=== PATIENT | male | born 1935 | race Caucasian/White ===

== ENCOUNTER 2017-08-20 14:07 | Inpatient (IN) | payer OTHER ==
[~2017-08-20] VITALS: Ht 190.5 cm; Wt 88.5 kg
[2017-08-20 15:00] LABS: CALCIUM 8.6 mg/dL (8.5-10.1); CARBON DIOXIDE 29.6 mmol/L (21-32); CHLORIDE SERUM 99 mmol/L (98-107); CREATININE SERUM 1.5 mg/dL (0.7-1.3); GLUCOSE SERUM 109 mg/dL (74-106); POTASSIUM SERUM 4.4 mmol/L (3.5-5.1); SODIUM SERUM 135 mmol/L (136-145)
[2017-08-20 15:01] LABS: BASOPHIL % 0.8 % (0-2); PLATELET COUNT 234 x10^3mcL (130-400)
[2017-08-20 15:02] LABS: RED CELL DISTRIBUTION WIDTH 18.8 % (11.5-14.5)
[2017-08-20] MEDS ORDERED: CLOPIDOGREL75 M1 PO (15:09)
[2017-08-20] MEDS ORDERED: ZETIA10 M1 PO (15:09)
[2017-08-20] MEDS ORDERED: BAYER ASPIRIN R81 MG PO (15:09)
[2017-08-20] MEDS ORDERED: GOOD SENSE OMEP20 MG PO (15:10)
[2017-08-20] MEDS ORDERED: LASIX40 MG PO (15:10)
[2017-08-20] MEDS ORDERED: PRADAXA150 M1 PO (15:11)
[2017-08-20] MEDS ORDERED: LOSARTAN POTASS1 TAB PO (15:11)
[2017-08-20 15:12] LABS: ALKALINE PHOSPHATASE 71 U/L (46-116); ALT/SGPT 37 U/L (16-63); AST/SGOT 28 U/L (15-37); BILIRUBIN TOTAL 0.6 mg/dL (0.20-1.00); TOTAL PROTEIN, SERUM 7.4 g/dL (6.4-8.2)
[2017-08-20] MEDS ORDERED: OSTEO BI-FLEX1 EAC2 PO (15:12)
[2017-08-20] MEDS ORDERED: RANEXA1000 M2 PO (15:12)
[2017-08-20] MEDS ORDERED: ZOLOFT50 MG PO (15:13)
[2017-08-20] MEDS ORDERED: AMIODARONE HCL200 MG PO (15:13)
[2017-08-20] MEDS ORDERED: FLO4 PO (15:13)
[2017-08-20] MEDS ORDERED: PRA40 PO (15:14)
[2017-08-20] MEDS ORDERED: TOPROL XL25 MG PO (15:14)
[2017-08-20] MEDS ORDERED: RESTORIL30 MG PO (15:15)
[2017-08-20 16:32] LABS: MAGNESIUM 2.3 mg/dL (1.8-2.4); PHOSPHOROUS 3.7 mg/dL (2.5-4.9)
[2017-08-20 16:34] LABS: CHOLESTEROL/HDL RATIO 3.2
[2017-08-20 17:25] VITALS: BP 144/61
[2017-08-20 18:09] VITALS: BP 148/63
[2017-08-20 18:11] LABS: microscopic required? NO
[2017-08-20 18:18] LABS: urine erythrocyte NEGATIVE (NEGATIVE)
[2017-08-20 18:26] LABS: AMPHETAMINE QUAL UR NONE DETECTED (NEG <=1000)
[2017-08-20 21:02] VITALS: BP 127/64
[2017-08-21] VITALS (11 sets, daily range): BP systolic 80–125; BP diastolic 26–58
[2017-08-21 09:33] LABS: BASOPHIL % 0.2 % (0-2); PLATELET COUNT 206 x10^3mcL (130-400)
[2017-08-21 09:34] LABS: RED CELL DISTRIBUTION WIDTH 18.8 % (11.5-14.5)
[2017-08-21 09:44] LABS: CALCIUM 7.9 mg/dL (8.5-10.1); CARBON DIOXIDE 29.9 mmol/L (21-32); CHLORIDE SERUM 104 mmol/L (98-107); CREATININE SERUM 1.6 mg/dL (0.7-1.3); GLUCOSE SERUM 125 mg/dL (74-106); MAGNESIUM 2.1 mg/dL (1.8-2.4); PHOSPHOROUS 3.9 mg/dL (2.5-4.9); POTASSIUM SERUM 3.8 mmol/L (3.5-5.1); SODIUM SERUM 140 mmol/L (136-145)
[2017-08-22 05:28] VITALS: BP 125/53
[2017-08-22 06:19] LABS: CALCIUM 8.3 mg/dL (8.5-10.1); CARBON DIOXIDE 28.9 mmol/L (21-32); CHLORIDE SERUM 103 mmol/L (98-107); CREATININE SERUM 1.5 mg/dL (0.7-1.3); GLUCOSE SERUM 96 mg/dL (74-106); SODIUM SERUM 139 mmol/L (136-145)
[2017-08-22 06:53] LABS: BASOPHIL % 0.5 % (0-2); PLATELET COUNT 186 x10^3mcL (130-400)
[2017-08-22 07:01] LABS: RED CELL DISTRIBUTION WIDTH 18.5 % (11.5-14.5)
[2017-08-22 08:16] LABS: rbc morphology (normal/abnorm) ABNORMAL (NORMAL)
[2017-08-22 09:50] VITALS: BP 106/50
[2017-08-22 13:40] VITALS: BP 120/51
[2017-08-22 17:40] VITALS: BP 118/69
[2017-08-22 21:57] LABS: BASOPHIL % 0.5 % (0-2); PLATELET COUNT 175 x10^3mcL (130-400)
[2017-08-22 22:04] LABS: RED CELL DISTRIBUTION WIDTH 18.5 % (11.5-14.5)
[2017-08-22 22:53] VITALS: BP 130/54
[2017-08-23 05:43] VITALS: BP 136/78
[2017-08-23 06:41] LABS: BASOPHIL % 0.6 % (0-2); PLATELET COUNT 166 x10^3mcL (130-400)
[2017-08-23 06:42] LABS: RED CELL DISTRIBUTION WIDTH 18.1 % (11.5-14.5)
[2017-08-23 06:49] LABS: CARBON DIOXIDE 28.2 mmol/L (21-32); CHLORIDE SERUM 99 mmol/L (98-107); CREATININE SERUM 1.5 mg/dL (0.7-1.3); GLUCOSE SERUM 96 mg/dL (74-106); POTASSIUM SERUM 3.9 mmol/L (3.5-5.1); SODIUM SERUM 133 mmol/L (136-145)
[2017-08-23 09:45] VITALS: BP 118/42
[2017-08-23 13:17] VITALS: BP 129/64
[2017-08-23 16:35] VITALS: BP 129/59
[2017-08-23 16:59] VITALS: BP 129/59
== END 2017-08-23 18:35 | DRG 377 ==
LOC: ED 14:07 → DU 15:12
PROVIDERS: Emergency Medicine; Internal Medicine; ADMIT Family Medicine Sports Medicine
PROC: 0W3P8ZZ Control Bleeding in Gastrointestinal Tract, Via Natural or Artificial Opening Endoscopic (ICD-10-PCS; principal; 2017-08-21 08:00)
PROC: 0DJD8ZZ Inspection of Lower Intestinal Tract, Via Natural or Artificial Opening Endoscopic (ICD-10-PCS; 2017-08-21 08:00)
DX: K29.61 Other gastritis with bleeding (principal); N17.0 Acute kidney failure with tubular necrosis; I50.43 Acute on chronic combined systolic (congestive) and diastolic (congestive) heart failure; E44.0 Moderate protein-calorie malnutrition; E87.1 Hypo-osmolality and hyponatremia; D68.69 Other thrombophilia; E87.3 Alkalosis; I11.0 Hypertensive heart disease with heart failure; I20.9 Angina pectoris, unspecified; K20.8 Other esophagitis; K44.9 Diaphragmatic hernia without obstruction or gangrene; K57.30 Diverticulosis of large intestine without perforation or abscess without bleeding; E11.9 Type 2 diabetes mellitus without complications; F41.8 Other specified anxiety disorders; N40.0 Benign prostatic hyperplasia without lower urinary tract symptoms; K21.9 Gastro-esophageal reflux disease without esophagitis; E78.5 Hyperlipidemia, unspecified; Z68.25 Body mass index [BMI] 25.0-25.9, adult; Z95.0 Presence of cardiac pacemaker; Z95.2 Presence of prosthetic heart valve; Z95.1 Presence of aortocoronary bypass graft; Z95.5 Presence of coronary angioplasty implant and graft; Z86.73 Personal history of transient ischemic attack (TIA), and cerebral infarction without residual deficits; Z79.84 Long term (current) use of oral hypoglycemic drugs; Z79.82 Long term (current) use of aspirin
CPT/HCPCS: 43235; 45378; 82962; 83880; 97110-GP; 97116-GP; 97530-GP; J1200; J1610; J1940; J2250; J2310; J2405; J3010; J3490; J7030; J7040; P9016; Q0092; Q0163

== ENCOUNTER 2017-09-06 11:02 | Observation (INO) | payer OTHER ==
[~2017-09-06] VITALS: Ht 190.5 cm; Wt 89.0 kg
[~2017-09-06 11:02] MED LIST: AMIODARONE HCL200 MG PO; BAYER ASPIRIN R81 MG PO; CLOPIDOGREL75 M1 PO; FLO4 PO; GOOD SENSE OMEP20 MG PO; LASIX40 MG PO; LOSARTAN POTASS1 TAB PO; OSTEO BI-FLEX1 EAC2 PO; PRA40 PO; PRADAXA150 M1 PO; RANEXA1000 M2 PO; RESTORIL30 MG PO; TOPROL XL25 MG PO; ZETIA10 M1 PO; ZOLOFT50 MG PO
[2017-09-06 11:58] LABS: BASOPHIL % 0.2 % (0-2); PLATELET COUNT 202 x10^3mcL (130-400)
[2017-09-06 12:01] LABS: RED CELL DISTRIBUTION WIDTH 20.4 % (11.5-14.5)
[2017-09-06 12:14] LABS: CALCIUM 8.5 mg/dL (8.5-10.1); CARBON DIOXIDE 29.5 mmol/L (21-32); CHLORIDE SERUM 101 mmol/L (98-107); CREATININE SERUM 1.5 mg/dL (0.7-1.3); GLUCOSE SERUM 109 mg/dL (74-106); POTASSIUM SERUM 4.5 mmol/L (3.5-5.1); SODIUM SERUM 137 mmol/L (136-145)
[2017-09-06 12:18] LABS: ALKALINE PHOSPHATASE 76 U/L (46-116); ALT/SGPT 54 U/L (16-63); AST/SGOT 61 U/L (15-37); BILIRUBIN TOTAL 0.9 mg/dL (0.20-1.00); LIPASE 178 IU/L (73-393); TOTAL PROTEIN, SERUM 7.1 g/dL (6.4-8.2); TRIGLYCERIDES 97 mg/dL (<150)
[2017-09-06 12:19] LABS: ALBUMIN 3.1 g/dL (3.4-5.0); CHOLESTEROL 131 mg/dL (<200); CHOLESTEROL/HDL RATIO 3.9; HDL CHOLESTEROL 34 mg/dL (40-60)
[2017-09-06 12:21] LABS: T3 TOTAL 0.46 ng/mL
[2017-09-06 12:29] LABS: FREE T4 1.12 ng/dL (0.76-1.46); FREE THYROXINE INDEX 3.4 ug/dL (1.4-4.5); T4(THYROXINE) 10.5 ug/dL (4.7-13.3)
[2017-09-06 13:52] VITALS: BP 139/63
[2017-09-06 13:52] LABS: MAGNESIUM 2.3 mg/dL (1.8-2.4)
[2017-09-06 14:02] VITALS: Ht 190.5 cm; Wt 89.0 kg
[2017-09-06 15:31] LABS: microscopic required? NO
[2017-09-06 15:42] LABS: urine erythrocyte NEGATIVE (NEGATIVE)
[2017-09-06 16:56] VITALS: BP 115/61; BP 137/74
[2017-09-06 21:05] VITALS: BP 137/56
[2017-09-07 05:42] VITALS: BP 134/59
[2017-09-07 06:43] LABS: CALCIUM 8.1 mg/dL (8.5-10.1); CHLORIDE SERUM 101 mmol/L (98-107); CREATININE SERUM 1.5 mg/dL (0.7-1.3); GLUCOSE SERUM 92 mg/dL (74-106); POTASSIUM SERUM 4.6 mmol/L (3.5-5.1); SODIUM SERUM 136 mmol/L (136-145)
[2017-09-07 06:56] LABS: BASOPHIL % 0.6 % (0-2); PLATELET COUNT 180 x10^3mcL (130-400); RED CELL DISTRIBUTION WIDTH 20.6 % (11.5-14.5)
[2017-09-07 08:54] VITALS: BP 123/62
[2017-09-07 12:10] VITALS: BP 128/51
[2017-09-07 16:35] VITALS: BP 144/58
[2017-09-07 20:40] VITALS: BP 99/48
[2017-09-08 05:13] VITALS: BP 125/53
[2017-09-08 06:36] LABS: BASOPHIL % 0.4 % (0-2); PLATELET COUNT 201 x10^3mcL (130-400)
[2017-09-08 06:37] LABS: RED CELL DISTRIBUTION WIDTH 20.4 % (11.5-14.5)
[2017-09-08 06:57] LABS: CALCIUM 8.2 mg/dL (8.5-10.1); CARBON DIOXIDE 28.5 mmol/L (21-32); CHLORIDE SERUM 99 mmol/L (98-107); CREATININE SERUM 1.5 mg/dL (0.7-1.3); GLUCOSE SERUM 104 mg/dL (74-106); POTASSIUM SERUM 3.9 mmol/L (3.5-5.1); SODIUM SERUM 134 mmol/L (136-145)
[2017-09-08 09:12] VITALS: BP 132/56
[2017-09-08] MEDS ORDERED: FER300 PO (11:13)
[2017-09-08] MEDS ORDERED: ECO81 PO (11:14)
[2017-09-08 11:57] VITALS: BP 132/56
== END 2017-09-08 13:24 | DRG 811 ==
LOC: ED 11:02 → DU 12:56
PROVIDERS: Family Medicine; Specialist; ADMIT Family Medicine
DX: D64.9 Anemia, unspecified (principal); I50.43 Acute on chronic combined systolic (congestive) and diastolic (congestive) heart failure; E44.0 Moderate protein-calorie malnutrition; I11.0 Hypertensive heart disease with heart failure; I25.10 Atherosclerotic heart disease of native coronary artery without angina pectoris; E11.621 Type 2 diabetes mellitus with foot ulcer; L97.521 Non-pressure chronic ulcer of other part of left foot limited to breakdown of skin; K21.9 Gastro-esophageal reflux disease without esophagitis; N40.0 Benign prostatic hyperplasia without lower urinary tract symptoms; E78.5 Hyperlipidemia, unspecified; F32.9 Major depressive disorder, single episode, unspecified; F41.9 Anxiety disorder, unspecified; Z68.24 Body mass index [BMI] 24.0-24.9, adult; Z95.1 Presence of aortocoronary bypass graft; Z86.73 Personal history of transient ischemic attack (TIA), and cerebral infarction without residual deficits; Z95.0 Presence of cardiac pacemaker; Z95.2 Presence of prosthetic heart valve
CPT/HCPCS: 83880; 84439; 97530-GP; G0378; J7030; Q0092